=== PATIENT | female | born 1950 | race Caucasian/White ===

== ENCOUNTER 2020-03-09 13:19 | Outpatient (CLI) | payer MEDICARE ==
--- NOTE | 2020-03-09 14:52 | ULT ---
Exam: Bilateral renal ultrasound HISTORY: Chronic kidney disease. Stage III disease. COMPARISON: None FINDINGS: Right kidney: There appears to be severe right-sided hydronephrosis. There does appear to be renal co rtical thinning. There do appear to be a few cortical cysts. Largest cyst emanates from the upper pole measuring 5.2 x 5.1 x 7.0 cm. Evaluation is limited. Right kidney measurements: 6.4 x 11.2 x 7.8 cm. Left kidney: Normal cortical echotexture. No hydronephrosis Left kidney measurements 10.8 x 5.9 x 6.2 cm. Urinary bladder: Normal mucosa. IMPRESSION: 1. Severe right-sided hydronephrosis which persists upon voiding. Additionally, there may be right re nal cortical cyst. Consider additional imaging evaluation
== END 2020-03-09 13:20 | disposition home or self-care (01) ==
LOC: BICULT 13:19
PROVIDERS: ATTEND Internal Medicine Nephrology
DX: N18.30 Chronic kidney disease, stage 3 unspecified (principal); N13.30 Unspecified hydronephrosis; N28.1 Cyst of kidney, acquired
CPT/HCPCS: 76770

== ENCOUNTER 2020-03-16 13:59 | Outpatient (CLI) | payer MEDICARE ==
--- NOTE | 2020-03-16 15:36 | CT ---
CT abdomen and pelvis noncontrast HISTORY: Hydronephrosis. COMPARISON: Renal sonogram 03/09/2020. FINDINGS: Large areas of lobular homogeneous fluid density at the right hilum are confirmed. When jamshid sely correlated with recent sonogram, it is indeed favored to represent severe hydronephrosis rather than large parapelvic cysts. The ureter is completely decompressed. 2 adjacent calcifications at the inferior pole of the right kidney are 0.3 cm and 0.2 cm greatest diameters. The left renal collecting system, ureter, and urinary bladder are decompressed without stone evident. Gallbladder is surgically absent. Prominent calcification within the arterial structures, including n arrowing at each common iliac artery. Extensive postoperative changes of the lumbar spine with absence of the posterior elements at the low est 3 levels and a well-circumscribed, sagittally oriented fluid collection within the posterior subcutaneous tissues centered at the L3-4 levels. Small amount of abdominal fat protrudes into an umb ilical hernia. At the T11-12 level of the spine, a 0.4 cm pocket of gas at the left neural foramen appears to repres ent herniation from the disc space. Diverticula arise from the colon without adjacent inflammation. Within the anterior aspect of the right abdominal mesenteric fat is a well-circumscribed oval 3.4 cm x 2.6 cm heterogeneous mass with thick peripheral dystrophic calcification. Smaller irregular foci of dystrophic calcifications are nearby. The larger lesion may be related to a remote trauma. It does not have an aggressive appearance. IMPRESSION : Severe right hydronephrosis (favored over large parapelvic cysts). Moderate atrophy of the right mariluz l cortex. 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 Small nonobstructing right renal calculi (3 mm and 2 mm). Atherosclerosis with narrowing of each common iliac artery. 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 Postoperative changes of the lumbar spine. Diverticulosis. No evidence of diverticulitis. Other incidental-type findings as detailed above.
== END 2020-03-16 14:00 | disposition home or self-care (01) ==
LOC: BICCT 13:59
PROVIDERS: ATTEND Urology
DX: N13.2 Hydronephrosis with renal and ureteral calculous obstruction (principal); N26.1 Atrophy of kidney (terminal); M51.24 Other intervertebral disc displacement, thoracic region; K57.30 Diverticulosis of large intestine without perforation or abscess without bleeding; M61.9 Calcification and ossification of muscle, unspecified; I70.8 Atherosclerosis of other arteries; Z90.49 Acquired absence of other specified parts of digestive tract
CPT/HCPCS: 74176

== ENCOUNTER 2020-05-05 10:24 | Outpatient (CLI) | payer MEDICARE ==
[2020-05-05] MEDS ORDERED: Furosemide 40 MG/4 ML VIAL ONE (12:50)
--- NOTE | 2020-05-05 14:20 | NM ---
RADIONUCLIDE DIURETIC RENOGRAM: HISTORY: Dysuria, right hydronephrosis. RADIOPHARMACEUTICAL: 8 mCi Technetium 99m-[id number] injected intravenously. DIURETIC: 40 mg IV Lasic administered 15 minutes prior to the radiopharmaceutical. Imaging was performed with a Glez catheter in the urinary bladder. FINDINGS: There is good flow and normal tracer uptake by the left kidney with normal excretion into the ureter. No definite flow or tracer uptake is seen to the right kidney. The right renogram curve is normal and downsloping. The left renogram curve is normal and downslopin g. The right renogram curve is very close to in pallor to the X access. The calculated differential function measures 92% on the left and 8% on the right. IMPRESSION: 1. No significant flow or function of the right kidney. 2. Normal flow and function of the left kidney. POS: OFF
== END 2020-05-05 10:25 | disposition home or self-care (01) ==
LOC: NM 10:24
PROVIDERS: ATTEND Urology
DX: R30.0 Dysuria (principal)
CPT/HCPCS: 78708; A4641; A9562; J1940

== ENCOUNTER 2024-03-03 13:06 | Outpatient (CLI) | payer MEDICARE | END 2024-03-03 13:07 | disposition home or self-care (01) | LOC: BICCT 13:06 | PROVIDERS: ATTEND Family Medicine Sports Medicine | DX: Z12.2 Encounter for screening for malignant neoplasm of respiratory organs (principal); F17.210 Nicotine dependence, cigarettes, uncomplicated; I31.8 Other specified diseases of pericardium | CPT/HCPCS: 71271 ==

== ENCOUNTER 2024-03-12 12:52 | Outpatient (CLI) | payer MEDICARE | END 2024-03-12 12:53 | disposition home or self-care (01) | LOC: BICMAMMO 12:52 | PROVIDERS: ATTEND Family Medicine Sports Medicine | DX: Z78.0 Asymptomatic menopausal state (principal) | CPT/HCPCS: 77080 ==

== ENCOUNTER 2024-04-13 10:34 | Outpatient (CLI) | payer MEDICARE | END 2024-04-13 10:35 | disposition home or self-care (01) | LOC: BICULT 10:34 | PROVIDERS: ATTEND Internal Medicine Nephrology | DX: N18.30 Chronic kidney disease, stage 3 unspecified (principal); N13.30 Unspecified hydronephrosis | CPT/HCPCS: 76770 ==